=== PATIENT | female | born 1985 | race Caucasian/White ===

== ENCOUNTER 2021-11-24 10:28 | Outpatient (CLI) | payer OTHER, SELFPAY ==
--- NOTE | 2021-11-24 11:11 | EST_ITS ---
Patient Info Name: Radha Mijares Age: 36 years : 1985 Gender: Female Ht: 62 in Wt: 136 lbs BSA: 1.65 m2 HR: 66 bpm BP: 105 / 69 mmHg Heart Rhythm: Sinus Rhythm Exam Date: 11/24/2021 11:21 AM Exam Location: [facility] Stress Patient Status: Outpatient Admit Date: 11/24/2021 Staff Ordering Physician: Jaymie Selby NP Attending Provider: Jaymie Selby NP Exercise Technologist: Skye Mckeon CT Exercise Physician: Zhen Masters DO Exam Type: CA stress test treadmill Study Info Indications R07.9 - Chest pain, unspecified A treadmill exercise stress test was performed. Summary 1. 1. Negative Eben exercise stress test for ischemic ST changes by ECG criteria. 2. 2. Good functional capacity, achieving 11 METs of workload. 3. 3. Appropriate HR response to exercise. 4. 4. Appropriate HR recovery at 1 minute post exercise. 5. 5. No imaging with stress testing. 6. 6. Patient informed of the above results. Protocol: Eben Stress ECG Details Stage: REST Duration (min): 1 min : 20 sec Speed (mph): 0.0 Grade (%): 0 HR (bpm): 69 SBP (mmHg): 105 DBP (mmHg): 69 METS: --- Stage: REST Duration (min): 19 min : 30 sec Speed (mph): 0.0 Grade (%): 0 HR (bpm): 73 SBP (mmHg): 105 DBP (mmHg): 69 METS: --- Stage: STAGE 1 Duration (min): 1 min : 0 sec Speed (mph): 1.7 Grade (%): 10 HR (bpm): 133 SBP (mmHg): 105 DBP (mmHg): 69 METS: --- Stage: STAGE 1 Duration (min): 2 min : 0 sec Speed (mph): 1.7 Grade (%): 10 HR (bpm): 129 SBP (mmHg): 105 DBP (mmHg): 69 METS: --- Stage: STAGE 1 Duration (min): 3 min : 0 sec Speed (mph): 1.7 Grade (%): 10 HR (bpm): 136 SBP (mmHg): 153 DBP (mmHg): 82 METS: --- Stage: STAGE 2 Duration (min): 1 min : 0 sec Speed (mph): 2.5 Grade (%): 12 HR (bpm): 148 SBP (mmHg): 153 DBP (mmHg): 82 METS: --- Stage: STAGE 2 Duration (min): 2 min : 0 sec Speed (mph): 2.5 Grade (%): 12 HR (bpm): 160 SBP (mmHg): 152 DBP (mmHg): 79 METS: --- Stage: STAGE 2 Duration (min): 3 min : 0 sec Speed (mph): 2.5 Grade (%): 12 HR (bpm): 164 SBP (mmHg): 152 DBP (mmHg): 79 METS: --- Stage: STAGE 3 Duration (min): 1 min : 0 sec Speed (mph): 3.4 Grade (%): 14 HR (bpm): 176 SBP (mmHg): 158 DBP (mmHg): 80 METS: --- Stage: STAGE 3 Duration (min): 2 min : 0 sec Speed (mph): 3.4 Grade (%): 14 HR (bpm): 182 SBP (mmHg): 158 DBP (mmHg): 80 METS: --- Stage: STAGE 3 Duration (min): 3 min : 0 sec Speed (mph): 3.4 Grade (%): 14 HR (bpm): 179 SBP (mmHg): 150 DBP (mmHg): 73 METS: --- Stage: STAGE 4 Duration (min): 0 min : 37 sec Speed (mph): 4.2 Grade (%): 16 HR (bpm): 185 SBP (mmHg): 150 DBP (mmHg): 73 METS: ---
== END 2021-11-24 10:29 | disposition home or self-care (01) ==
PROVIDERS: PCP Nurse Practitioner Family; Visit Provider Nurse Practitioner Family
DX: R68.89 Other general symptoms and signs (principal); R07.9 Chest pain, unspecified
CPT/HCPCS: 93017